=== PATIENT | male | born 1965 | race Caucasian/White ===

== ENCOUNTER 2023-08-15 08:41 | Outpatient (CLI) | payer BC, SELFPAY ==
--- NOTE | 2023-08-15 09:00 | CRLHL7_ITS ---
For Patients: As a result of the Century Cures Act, medical imaging exams and procedure reports are released immediately into your electronic medical record. You may view this report before your referring provider. If you have questions, please contact your health care provider. INDICATION: Left flank pain for 3 years. Progressive left flank pain. TECHNIQUE: Contrast-enhanced CT of the abdomen and pelvis. 100 cc nonionic Isovue-370 administered. COMPARISON: None. Correlation is made with x-rays of the chest and left-sided ribs August 04, 2023. FINDINGS: Clear included lung bases. No pleural or pericardial effusions. No pulmonary nodules at either lung base. Normal-appearing liver, spleen, pancreas, gallbladder, adrenal glands, and kidneys. There is a small benign-appearing cyst in the posterior left kidney image 67 series 2 measuring 1.2 x 1.4 cm. No renal stone. No perinephric fluid collections or fat stranding. Normal caliber abdominal aorta and iliac arteries. Normal inferior vena cava. Normal urinary bladder. Mild prostatic enlargement with prostatic calcifications. Normal seminal vesicles. Calcified pelvic phleboliths. No ascites or lymphadenopathy. The stomach is mildly distended by air and fluid and appears within normal limits. Normal small bowel. Normal appendix, image 106 series 2. Normal-appearing colon. There may be 1 or 2 small sigmoid diverticula although this could simply reflect underdistention of the sigmoid colon. No abdominal wall hernias. No subcutaneous or soft tissue hematomas. The included skeleton is negative for new or old fractures. No lytic or blastic lesions are identified. IMPRESSION: 1. No acute abdominopelvic process identified. 2. The included skeleton is negative for new or old fractures. 3. Mild prostatic enlargement with prostatic calcifications. 4. Small left renal cyst. Please note that all CT scans at this facility use dose modulation, iterative reconstruction, and/or weight-based dosing when appropriate to reduce radiation dose to as low as reasonably achievable. Dictated by Ambrocio Lindsey MD @ 08/15/2023 6:34:18 PM (Electronically Signed)
== END 2023-08-15 08:42 | disposition home or self-care (01) ==
LOC: CT 08:43
PROVIDERS: PCP Nurse Practitioner Family; Visit Provider Nurse Practitioner
DX: R10.32 Left lower quadrant pain (principal); N28.1 Cyst of kidney, acquired; N40.0 Benign prostatic hyperplasia without lower urinary tract symptoms
CPT/HCPCS: 74177; Q9967

== ENCOUNTER 2024-05-23 08:14 | Outpatient (CLI) | payer BC, SELFPAY | END 2024-05-23 08:15 | disposition home or self-care (01) | LOC: NFLDREF 05-26 20:45 | PROVIDERS: PCP Nurse Practitioner Family; Referring Provider Nurse Practitioner Family; Visit Provider Family Medicine | DX: N40.0 Benign prostatic hyperplasia without lower urinary tract symptoms (principal); Z12.5 Encounter for screening for malignant neoplasm of prostate; Z13.1 Encounter for screening for diabetes mellitus; Z13.0 Encounter for screening for diseases of the blood and blood-forming organs and certain disorders involving the immune mechanism; Z13.6 Encounter for screening for cardiovascular disorders | CPT/HCPCS: 80048; 80061; G0103 ==